=== PATIENT | female | born 1995 | race African-American/Black ===

== ENCOUNTER 2020-10-04 03:30 | Emergency (ER) | payer OTHER ==
[~2020-10-04] VITALS: Ht 167.6 cm; Wt 47.2 kg
[~2020-10-04 03:30] MED LIST: KEFLEX250 MG PO; NOHOMEMEDICATIONS; ONDANSETRON HCL4 M2; PRENATAL PO; TUCKS MEDICATE1 EAC1 TOP; ZANTAC 150MG T150 MG; ZOFRAN ODT4 MG PO
[2020-10-04] MEDS ORDERED: SERTRALINE HCL100 MG PO (03:44)
[2020-10-04 04:25] LABS: ABSOLUTE NEUTROPHILS 7.4 thou/uL (1.4-8.2); BASOPHILS 0.4 % (0.0-2.0); EOSINOPHILS 0.5 % (0.0-3.0); HEMATOCRIT 38.8 % (37.0-47.0); HEMOGLOBIN 12.8 gm/dL (12.0-15.0); LYMPHOCYTES 17.4 % (24.0-44.0); MCH 28.3 pg (26.0-34.0); MCHC 33.1 g/dL (28.0-37.0); MCV 85.6 fL (80.0-100.0); MONOCYTES 8.7 % (1.0-8.0); PLATELET COUNT 353 thou/uL (150-400); RBC 4.53 mil/uL (4.20-5.00); RDW 14.4 % (10.5-14.5); URINE BILIRUBIN 1+ (Negative); URINE BLOOD NEGATIVE (Negative); URINE CLARITY SL CLOUDY; URINE COLOR YELLOW; URINE GLUCOSE-RANDOM* NEGATIVE (Negative); URINE KETONES 1+ (Negative); URINE LEUKOCYTES-REFLEX NEGATIVE (Negative); URINE NITRITE-REFLEX NEGATIVE (Negative); URINE PROTEIN (DIPSTICK) 1+ (Negative); URINE SPECIFIC GRAVITY >= 1.030 (1.005-1.035); WBC 10.1 thou/uL (4.0-11.0)
[2020-10-04 04:27] LABS: CALCIUM 9.1 mg/dL (8.5-10.1); POTASSIUM 3.5 mmol/L (3.5-5.1)
[2020-10-04 04:31] LABS: ICTOTEST (BILI CONFIRMATORY) Positive (Negative)
[2020-10-04 04:33] LABS: TOTAL BILIRUBIN 0.4 mg/dL (0.2-1.0); TOTAL PROTEIN 8.7 g/dL (6.4-8.2)
[2020-10-04 04:36] LABS: CASTS None Seen /LPF (None Seen); MUCUS 0-3 Light strn/LPF (None Seen); SQUAMOUS >10 Many /LPF (0-3)
[2020-10-04 04:37] LABS: CRYSTALS None Seen /LPF (None Seen); URINE RBC 1-2 Rare /HPF (NONE SEEN); URINE WBC-REFLEX 0-5 Rare /HPF (0-5)
[2020-10-04] MEDS ORDERED: ZOFRAN ODT4 MG PO (04:47)
[2020-10-04] MEDS ORDERED: CEPHALEXIN500 MG PO (04:47)
[2020-10-04 05:21] VITALS: BP 141/76
== END 2020-10-04 05:28 | disposition home or self-care (01) ==
LOC: ER 03:30
PROVIDERS: Emergency Medicine
DX: N39.0 Urinary tract infection, site not specified (principal); I10 Essential (primary) hypertension